=== PATIENT | male | born 1935 | race Two or more races ===

== ENCOUNTER 2017-02-17 08:09 | Day surgery (SDC) | payer MEDICARE, BC ==
--- NOTE | 2017-02-13 15:24 | Pre-Procedure Note/Attestation ---
Pre-Procedure Note/Attestation Complete Prior to Procedure Planned Procedure: bilateral Procedure Narrative: 1- Ptosis correction upper lids. 2- Entropion correction upper lids. 3-Blepharoplasty uppers lids. Indications for Procedure Pre-Operative Diagnosis: 1- Blepharoptosis upper lids 2-Entropion upper lids. 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 I attest that, if there was a reasonable possibility of needing a blood transfusion, the patient (or the patient's legal sales representative girls' apparel) was given the [facility] standardized written summary, pursuant to the Pavel Rehana Blood Safety Act ([place] Health and Safety Code # 1645, as amended). I attest that I re-evaluated the patient just prior to the surgery and that there has been no change in the patient's H&P, except as documented below: IRINA TOTH Feb 13, 2017 15:24
[2017-02-17] VITALS (9 sets, daily range): BP systolic 136–149; BP diastolic 50–68
[~2017-02-17] VITALS: Ht 160 cm; Wt 69.9 kg
[~2017-02-17 08:09] MED LIST: Akten 3.5% 1ml Btl BOTH EYES ONE; Akten 3.5% 1ml Btl ONE; METFORMIN HCL500 M1 ORAL; Maxitrol Opth Oint 3.5gm BOTH EYES ONE; TAMSULOSIN HCL0.4 MG ORAL
[2017-02-17] MEDS ORDERED: Lidocaine 2% 20mg/ml/EPI 0.01mg/ml 20ml ONE (09:04)
[2017-02-17 09:12] LABS: BASOPHILS % (AUTO) 1.1 % (0.0-2.0); EOSINOPHILS % (AUTO) 6.1 % (0.0-3.0); LYMPHOCYTES % (AUTO) 26.3 % (20.0-45.0); MEAN CORPUSCULAR HGB CONC 33.8 G/DL (32.0-36.0); MEAN CORPUSCULAR VOLUME 92 FL (80-99); MEAN PLATELET VOLUME 8.3 FL (6.5-10.1); MONOCYTES % (AUTO) 8.8 % (1.0-10.0); NEUTROPHILS % (AUTO) 57.6 % (45.0-75.0); PLATELET COUNT 170 K/UL (150-450); RED BLOOD COUNT 4.21 M/UL (4.70-6.10); RED CELL DISTRIBUTION WIDTH 10.7 % (11.6-14.8); WHITE BLOOD COUNT 7.2 K/UL (4.8-10.8)
[2017-02-17 09:16] LABS: ANION GAP 10 mmol/L (5-15); CALCIUM 9.4 MG/DL (8.5-10.1); CARBON DIOXIDE 25 MMOL/L (21-32); CHLORIDE 100 MMOL/L (98-107); POTASSIUM 4.2 MMOL/L (3.5-5.1); SODIUM 135 MMOL/L (136-145)
[2017-02-17 09:19] LABS: INR 1.1 (0.9-1.1); PROTHROMBIN TIME 11.2 SEC (9.30-11.50)
[2017-02-17] MEDS ORDERED: Propofol 200mg/20ml IV ONE (09:30)
[2017-02-17] MEDS ORDERED: LR 1000ml ONE (09:30)
[2017-02-17] MEDS ORDERED: Midazolam 2mg/2ml Inj ONE (09:30)
[2017-02-17] MEDS ORDERED: fentaNYL 100 mcg/2 mL IV ONE (09:30)
[2017-02-17] MEDS ORDERED: Sterile Water Irrig 1000ml IRRIG ONE (09:30)
[2017-02-17] MEDS ORDERED: NS Irrig 1000ml ONE (09:30)
[2017-02-17] MEDS ORDERED: LR 1000ml 1,000 ML IVLG SCH (09:47)
--- NOTE | 2017-02-17 09:47 | Anethesia Preoperative Eval ---
Anesthesia Pre-op PMH/ROS General Date of Evaluation: Feb 17, 2017 Time of Evaluation: 09:12 Anesthesiologist: Altagracia ASA Score: ASA 2 Mallampati Score Class I : Soft palate, uvula, fauces, pillars visible Class II: Soft palate, uvula, fauces visible Class III: Soft palate, base of uvula visible Class IV: Only hard plate visible Mallampati Classification: Class II Surgeon: Poncho Diagnosis: Bilateral ptosis Surgical Procedure: bilateral blepharoplasty Anesthesia History: none Family History: no anesthesia problems Allergies: Coded Allergies: No Known Allergies (Unverified , 01/03/13) Medications: see eMAR Past Medical History Cardiovascular: Reports: HTN, Denies: CAD, TX, valve dz, arrhythmia, other Pulmonary: Denies: asthma, COPD, ALEX, other Gastrointestinal/Genitourinary: Reports: GERD - mild, Denies: CRI, ESRD, other Neurologic/Psychiatric: Denies: dementia, CVA, depression/anxiety, TIA, other Endocrine: Reports: DM - stable on pills, Denies: hypothyroidism, steroids, other HEENT: Reports: cataract (L), cataract (R) - s/p Sx, glaucoma - L eye Hematology/Immune: Denies: anemia, DVT, bleeding disorder, other Musculoskeletal/Integumentary: Denies: OA, RA, DJD, DDD, edema, other PMH Narrative: as above PSxH Narrative: Bilateral cataract, hernia repair Anesthesia Pre-op Phys. Exam Physician Exam Last Vital Signs Date Time Temp Pulse Resp B/P (MAP) Pulse Ox O2 Delivery O2 Flow Rate FiO2 02/17/17 08:45 97.6 60 20 142/59 96 Room Air Constitutional: NAD Neurologic: CN 2-12 intact Cardiovascular: RRR, no M/R/G Respiratory: CTA Gastrointestinal: S/NT/ND Airway Exam Mallampati Score: Class II MO: limited Neck: stiff ROM: limited Teeth: missing Dentures: no upper, no lower Anesthesia Pre-op A/P Labs Hematology Test 02/17/17 08:55 White Blood Count 7.2 K/UL (4.8-10.8) Red Blood Count 4.21 M/UL (4.70-6.10) L Hemoglobin 13.0 G/DL (14.2-18.0) L Hematocrit 38.6 % (42.0-52.0) L Mean Corpuscular Volume 92 FL (80-99) Mean Corpuscular Hemoglobin 31.0 PG (27.0-31.0) Mean Corpuscular Hemoglobin Concent 33.8 G/DL (32.0-36.0) Red Cell Distribution Width 10.7 % (11.6-14.8) L Platelet Count 170 K/UL (150-450) Mean Platelet Volume 8.3 FL (6.5-10.1) Neutrophils (%) (Auto) 57.6 % (45.0-75.0) Lymphocytes (%) (Auto) 26.3 % (20.0-45.0) Monocytes (%) (Auto) 8.8 % (1.0-10.0) Eosinophils (%) (Auto) 6.1 % (0.0-3.0) H Basophils (%) (Auto) 1.1 % (0.0-2.0) Coagulation Test 02/17/17 08:55 Prothrombin Time 11.2 SEC (9.30-11.50) Prothromb Time International Ratio 1.1 (0.9-1.1) Activated Partial Thromboplast Time 30 SEC (23-33) Chemistry Test 02/17/17 08:55 Sodium Level 135 MMOL/L (136-145) L Potassium Level 4.2 MMOL/L (3.5-5.1) Chloride Level 100 MMOL/L (98-107) Carbon Dioxide Level 25 MMOL/L (21-32) Anion Gap 10 mmol/L (5-15) Blood Urea Nitrogen 15 mg/dL (7-18) Creatinine 1.0 MG/DL (0.55-1.30) Estimat Glomerular Filtration Rate mL/min (>60) Glucose Level 97 MG/DL (74-106) Calcium Level 9.4 MG/DL (8.5-10.1) Studies Pre-op Studies: EKG - NSR Risk Assessment & Plan Assessment: ASA 2 Plan: MAC Status Change Before Surgery: No Pre-Antibiotics Drug: none ALEXIA GALLAGHER M.D. Feb 17, 2017 09:46
[2017-02-17] MEDS ORDERED: fentaNYL 100 mcg/2 mL IV PRN (10:00)
[2017-02-17] MEDS ORDERED: DiphenhydrAMINE 50mg/ml Inj IVP PRN (10:00)
--- NOTE | 2017-02-17 10:42 | Discharge Summary ---
Discharge Summary Discharge Summary Discharge Summary DATE OF ADMISSION: 02/17/2017 DATE OF DISCHARGE: 02/17/2017 REASON FOR HOSPITALIZATION: 1- Ptosis upper lids 2- Entropion, upper lids 3- Dermatochalasis, blepharochalasis OU SURGERY PERFORMED: 1- Ptosis correction, upper lids 2- Entropion correction, upper lids 3- Blepharoplasty, upper lids CONDITION IN THE HOSPITAL:The patient tolerated the surgery without complications. DISCHARGE CONDITION: The patient was stable at discharge. DISCHARGE MEDICATIONS: 1. Tobradex eye drops one drop q.i.d, OU 2. Maxitrol eye ointment, apply to lids b.i.d, OU 3- Keflex 500mg q8h 4- [place] 5/325mg one po q6h PRN per Pain 3. POSTOPERATIVE ORDERS: The patient has to rest at home. No bending, No lifting, No watching Television tonight. POSTOPERATIVE FOLLOW UP: The patient will be followed in my office tomorrow morning at 7 o'clock. IRINA TOTH Feb 17, 2017 10:42
--- NOTE | 2017-02-17 10:53 | Brief Operative Note ---
Immediate Post Operative Note Operative Note Chief Complaint: Blurry vision droopy eyelids difficulty reading Pre-op Diagnosis: 1- Blepharoptosis upper lids 2-Entropion upper lids. 3-Blepharochalasis upper lids Procedure: 1- Ptosis correction, upper lids 2- Entropion correction, upper lids 3- Blepharoplasty, upper lids Post-op Diagnosis: same as pre-op Surgeon: Irina Isaac MD. Securities Teller: None Additional Surgeons: None Anesthesiologist: Dr. Frias Anesthesia: MAC Specimen: none Complications: none Condition: stable Fluids: 500ml Estimated Blood Loss: minimal Drains: none Implant(s) used?: IRINA Boothe Feb 17, 2017 10:53
--- NOTE | 2017-02-17 11:19 | Immediate Post-Op Evaluation ---
Immediate Post-Op Evalulation Immediate Post-Op Evalulation Procedure: Bilateral blepharoptosis Date of Evaluation: Feb 17, 2017 Time of Evaluation: 10:38 IV Fluids: 300 Blood Products: none Estimated Blood Loss: min Urinary Output: none Blood Pressure Systolic: 136 Blood Pressure Diastolic: 72 Pulse Rate: 62 Respiratory Rate: 20 O2 Sat by Pulse Oximetry: 98 Temperature (Fahrenheit): 97.6 Pain Score (1-10): 1 Nausea: No Vomiting: No Complications none Patient Status: awake, patent, none Hydration Status: adequate ALEXIA GALLAGHER M.D. Feb 17, 2017 11:19
--- NOTE | 2017-02-17 12:37 | 48 Hour Post Anesthesia Eval ---
Post Anesthesia Evaluation Procedure: Bilateral blepharoptosis Date of Evaluation: Feb 17, 2017 Time of Evaluation: 12:36 Blood Pressure Systolic: 144 0: 58 Pulse Rate: 64 Respiratory Rate: 18 Temperature (Fahrenheit): 97.6 O2 Sat by Pulse Oximetry: 98 Airway: patent Nausea: No Vomiting: No Pain Intensity: 2 Hydration Status: adequate Cardiopulmonary Status: stable Mental Status/LOC: patient returned to baseline Follow-up Care/Observations: n/a Post-Anesthesia Complications: none Follow-up care needed: ready to discharge ALEXIA GALLAGHER M.D. Feb 17, 2017 12:37
--- NOTE | 2017-02-17 22:00 | Pre-op HX & Phy Repo 2 SIG ---
DATE OF ADMISSION: 02/17/2017 PRESURGICAL INTERNAL MEDICINE HISTORY AND PHYSICAL REFERRING PHYSICIAN: Akin Isaac MD REASON FOR EVALUATION: The patient is an 81-year-old [place]-speaking male seen in presurgical internal medicine evaluation. The patient is going for elective surgery, bilateral blepharoplasty. The patient has bilateral ptosis. Please see full Ophthalmology History and Physical by Dr. Akin Isaac. PAST MEDICAL HISTORY: Remarkable for diabetes mellitus type 2. Denies history of chest pain, palpitation, or heart attack. No history of hypertension or stroke. No history of renal failure. History of prostate problem, benign prostatic hypertrophy surgery in the past. No history of GI bleeding, heartburn, or constipation. No history of seizures or Parkinson disease. Denies history of anemia, osteoarthritis, joint disease, weight loss, or fever. PAST SURGICAL HISTORY: Bilateral cataracts and TURP. FAMILY HISTORY: Not known. ALLERGIES: Not known. MEDICATIONS: Current medications, metformin and fish oil. HABITS: The patient smoked for approximately 30 years, one pack and a half cigarettes a day and quit 24 years ago. Occasional alcohol. No street drugs. PHYSICAL EXAMINATION: GENERAL: Alert, well-developed, well-nourished male, he is 81. Most of the information obtained through the daughter at bedside. VITAL SIGNS: Blood pressure 121/82, temperature 97.8, heart rate 72 and regular, and O2 saturation 98% on room air. SKIN: Dry and warm. No rashes. No diaphoresis. LYMPHATIC: No lymph node enlargement. HEENT: Head: Normocephalic. Ears clear. Normal hair growth. Eyes: Full description per Dr. Akin Isaac. No ear discharge. Nose: No congestion. Mouth: With partial dentures. Mucous moist and clear. NECK: Thyroid gland not enlarged. No palpable mass. Supple. No jugular vein distention. CHEST: No deformity or asymmetry. LUNGS: Clear to auscultation and percussion. No rales or rhonchi. HEART: Sinus rhythm. No ectopy. No murmur. No S3 or S4. ABDOMEN: Soft and benign. No palpable mass. No rebound. EXTREMITIES: No peripheral edema or varicose veins. No calf tenderness. No deformity. NERVOUS SYSTEM: Cranial nerves II to XII within normal limit. No tremor or nystagmus. GENITOURINARY TRACT: CVA nontender. Post TURP. DIAGNOSTIC AND LABORATORY DATA: Electrocardiogram normal sinus bradycardia with a rate of 56, otherwise normal ECG. The patient's last p.o. intake 10 p.m. LABS: Fasting blood sugar 101 mg/dL. IMPRESSION: 1. Bilateral ptosis. 2. Type 2 diabetes mellitus. 3. Benign prostatic hypertrophy. 4. Sinus bradycardia, asymptomatic. PLAN: Blepharoplasty, bilateral, per Dr. Akin Isaac. CONCLUSION: The patient has mild bradycardia. Vital signs stable. Blood sugar controlled with 101 mg/dL. The patient did not eat or drink from last 10 p.m. last night. The patient's condition optimized for surgery. Thank you very much, Dr. Isaac, for privilege to participate presurgical care of this interesting patient. Aubrey Cruz M.D. DR: SARA JOB#: [id number] CC:
--- NOTE | 2017-02-18 01:00 | Operative Note - Dictated ---
DATE OF OPERATION: 02/17/2017 FACILITY: [facility]. SURGEON: Akin Isaac M.D. FREIGHT COORDINATOR: None. ANESTHESIOLOGIST: Seng Frias M.D. ANESTHESIA: Monitored anesthesia care (MAC) with lidocaine 2% plus epinephrine 1:100,000. PREOPERATIVE DIAGNOSES: 1. Ptosis, upper lids. 2. Entropion, upper lids. 3. Dermatochalasis and blepharochalasis, upper lids. POSTOPERATIVE DIAGNOSES: 1. Ptosis, upper lids. 2. Entropion, upper lids. 3. Dermatochalasis and blepharochalasis, upper lids. SURGERY PERFORMED: 1. Ptosis correction, upper lids. 2. Entropion correction, upper lids. 3. Blepharoplasty, upper lids bilaterally. INDICATIONS FOR SURGERY: The patient is an 81-year-old gentleman with history of diabetes mellitus, hypertension for more than 10 years, and osteoarthritis. He is taking Diovan and metformin. He has had cataract surgeries on both eyes and he is happy with the results. He had a recent surgery in the right eye as well. Now, he is complaining of droopy eyelids and difficulty driving, reading, and watching TV. On examination of the eyes, the patient has droopy eyelids, ptosis, entropion, dermatochalasis, and blepharochalasis bilaterally. This is a dermatochalasis lesion and significant corneal astigmatism and also it is covering the patient's optical axis and preventing the patient from driving and watching TV. The severity of the ptosis, entropion, and dermatochalasis clearly shown in the patient's visual rai and pictures as well. There is no alternative for this disfigurement and anatomy changes. The only option for this patient is correction of all those anatomic changes with surgery. INFORMED CONSENT: The nature of the surgery, risks, benefits, and potential complications were explained in detail to the patient in his language, Farsi. The potential complications including, but not limited to infection, bleeding, dry eye syndrome, inequality of both eyes, losing lashes and eyebrows, hematoma of the face and eyes, blindness, visual change, visual decline, loss of vision, and even loss of the eye were all explained in detail to the patient in his language, Farsi. The patient voiced understanding and accepted all the complications and accepted to have above surgeries including ptosis, entropion, and dermatochalasis. Then, he signed the consent form, which is in the chart. DESCRIPTION OF SURGERY AND FINDINGS: Following that, the patient was taken to the operating room in a stable condition. IV sedation was given by the anesthesiologist, Dr. Frias. After adequate anesthesia and sedation had been achieved, the upper eyelids were marked with a marking pen 8 mm superior to the eyelashes and 10 mm below the lower border of the eyelid. Overall, 30 mm of the skin was left to facilitate eye closure. Following that, using a Bovie knife, the skin and subdermal tissue was removed. Following that, orbicularis oculi muscle was dissected and 2 fat compartments were released. Following that, the fat compartments were sculptured conservatively. Following that, the aponeurosis of the levator muscle was tacked about 6 mm and stitched with 6-0 Vicryl in both eyes. Then, hemostasis was performed and the stitches were freed. Following that, for treatment of the entropion, the tarsal plate was removed and stitched with 6-0 Vicryl bilaterally. Both the upper eyelids were turned from downwards to upwards due to entropion. Hemostasis was performed. Following that, the orbicularis oculi muscle was stitched with 6-0 Vicryl and stitches were trimmed and hemostasis was performed. Following that, the skin was stitched with 6-0 plain gut in the fashion of continuous running. The patient tolerated the surgery without complications. At the end of the surgery, Maxitrol ointment was applied to the wound and both eyes. Following that, the patient was transferred to the recovery room. In the recovery room, the wound was checked for bleeding. There was no bleeding. Cold compresses were applied to the area. Postoperative orders and directions were given to the patient. The patient will be discharged home upon stabilization. The patient will be followed in my office tomorrow morning. Akin Isaac M.D. DR: NALINI JOB#: [id number] CC:
--- NOTE | 2017-02-19 16:46 | Cardiology Report ---
APPROVED REPORT EKG Measurement Heart [id number] Sinus bradycardia Otherwise normal ECG
== END 2017-02-17 12:20 | disposition home or self-care (01) ==
LOC: SUR 08:09
DX: H02.403 Unspecified ptosis of bilateral eyelids (principal); H02.004 Unspecified entropion of left upper eyelid; H02.001 Unspecified entropion of right upper eyelid; H02.834 Dermatochalasis of left upper eyelid; H02.831 Dermatochalasis of right upper eyelid; H53.8 Other visual disturbances; Z87.891 Personal history of nicotine dependence; E11.9 Type 2 diabetes mellitus without complications; R00.1 Bradycardia, unspecified; N40.0 Benign prostatic hyperplasia without lower urinary tract symptoms; I10 Essential (primary) hypertension; M19.90 Unspecified osteoarthritis, unspecified site; K21.9 Gastro-esophageal reflux disease without esophagitis; Z79.84 Long term (current) use of oral hypoglycemic drugs
CPT/HCPCS: 15822; 36415; 67924; 80048; 82962; 85025; 85610; 85730; 93005; J2250; J2704; J3010; J7120; 94003; 94150